=== PATIENT | female | born 1955 ===

== ENCOUNTER 2020-09-15 08:45 | Inpatient (IN) | payer OTHER ==
[~2020-09-15] VITALS: Ht 160 cm; Wt 73.5 kg
[2020-09-15] MEDS ORDERED: BENADRYL25 MG PO (12:18)
[2020-09-15] MEDS ORDERED: GABAPENTIN800 M1 PO (12:18)
[2020-09-15] MEDS ORDERED: CLONAZEPAM2 M1 PO (12:18)
[2020-09-15] MEDS ORDERED: DILTIAZEM ER120 M2 PO (12:18)
[2020-09-15] MEDS ORDERED: LIPITOR80 MG PO (12:19)
[2020-09-22] MEDS ORDERED: PERCOCET 5-3251 EACH PO (11:38)
[2020-09-22] MEDS ORDERED: DIAZEPAM5 MG PO (11:38)
[2020-09-22] MEDS ORDERED: AMOX-CLAV 875-1 EAC1 PO (11:38)
[2020-09-22] MEDS ORDERED: COLACE100 MG PO (11:38)
[2020-09-22] MEDS ORDERED: MEDROLPACK PO (11:38)
[2020-09-22] MEDS ORDERED: NEURONTIN800 MG PO (11:38)
[2020-10-04] MEDS ORDERED: DILTIAZEM 24HR240 MG (23:14)
[2020-10-05] MEDS ORDERED: ULTRACET PO (05:07)
[2020-10-08] MEDS ORDERED: ZESTRIL10 M1 PO (18:36)
[2020-10-08] MEDS ORDERED: DILTIAZEM125 MG/122 IV (18:37)
[2020-10-08] MEDS ORDERED: NEURONTIN800 MG PO (18:37)
[2020-10-08] MEDS ORDERED: FORTAMET500 MG PO (18:37)
[2020-10-08] MEDS ORDERED: ATORVASTATIN CA10 MG PO (18:37)
== END 2020-09-23 13:39 | disposition home or self-care (01) | DRG 460 ==
LOC: PED 09-22 06:29 → O/R 09-22 06:29 → SURH 09-22 08:45 → PED 09-22 16:06 → EDBD 09-23 13:39 → PED 09-23 13:39
PROVIDERS: ADMIT Orthopaedic Surgery Orthopaedic Surgery of the Spine; ATTEND Orthopaedic Surgery Orthopaedic Surgery of the Spine
PROC: 0SG Lower Joints, Fusion (ICD-10-PCS; 2020-09-22)
PROC: 3E0U0GB Introduction of Recombinant Bone Morphogenetic Protein into Joints, Open Approach (ICD-10-PCS; 2020-09-22)
PROC: XRGB0F3 Fusion of Lumbar Vertebral Joint using Radiolucent Porous Interbody Fusion Device, Open Approach, New Technology Group 3 (ICD-10-PCS; principal; 2020-09-22 13:30)
DX: M96.0 Pseudarthrosis after fusion or arthrodesis (principal); M54.16 Radiculopathy, lumbar region

== ENCOUNTER → 2020-10-08 | Emergency (ER) | payer OTHER ==
[~2020-10-08] VITALS: Ht 157.5 cm; Wt 71.7 kg
[~2020-10-08] MED LIST: AMOX-CLAV 875-1 EAC1 PO; ATORVASTATIN CA10 MG PO; BENADRYL25 MG PO; CLONAZEPAM2 M1 PO; COLACE100 MG PO; DIAZEPAM5 MG PO; DILTIAZEM 24HR240 MG; DILTIAZEM ER120 M2 PO; DILTIAZEM125 MG/122 IV; FORTAMET500 MG PO; GABAPENTIN800 M1 PO; LIPITOR80 MG PO; MEDROLPACK PO; NEURONTIN800 MG PO; PERCOCET 5-3251 EACH PO; ULTRACET PO; ZESTRIL10 M1 PO
== END | disposition home or self-care (01) ==
LOC: ER 18:23 → EDBD 21:57 → ER 21:57
DX: S80.02XA Contusion of left knee, initial encounter (principal); M25.562 Pain in left knee; W18.09XA Striking against other object with subsequent fall, initial encounter; Y93.89 Activity, other specified; Y92.89 Other specified places as the place of occurrence of the external cause; Y99.8 Other external cause status